=== PATIENT | male | born 1935 | race Caucasian/White ===

== ENCOUNTER → 2020-10-06 14:00 | Outpatient (BNVA) | payer MEDICARE, OTHER, SELFPAY | PROVIDERS: PCP Family Medicine; Referring Provider Family Medicine; Visit Provider Nurse Practitioner Family | DX: R10.11 Right upper quadrant pain (principal); Z12.5 Encounter for screening for malignant neoplasm of prostate; R32 Unspecified urinary incontinence; N40.1 Benign prostatic hyperplasia with lower urinary tract symptoms | CPT/HCPCS: 81003; G0103 ==

== ENCOUNTER → 2020-12-02 14:04 | Outpatient (BNVA) | payer MEDICARE, OTHER, SELFPAY | PROVIDERS: PCP Family Medicine; Visit Provider Urology | DX: N40.1 Benign prostatic hyperplasia with lower urinary tract symptoms (principal); N48.1 Balanitis | CPT/HCPCS: 81003 ==

== ENCOUNTER → 2021-01-13 13:36 | Outpatient (BNVA) | payer MEDICARE, OTHER, SELFPAY | PROVIDERS: PCP Family Medicine; Visit Provider Urology | DX: N40.1 Benign prostatic hyperplasia with lower urinary tract symptoms (principal) | CPT/HCPCS: 81003 ==

== ENCOUNTER → 2021-01-29 09:50 | Outpatient (BNVA) | payer MEDICARE, OTHER, SELFPAY | PROVIDERS: PCP Family Medicine; Referring Provider Family Medicine; Visit Provider Specialist | DX: G20 Parkinson's disease (principal); Z87.891 Personal history of nicotine dependence | CPT/HCPCS: 99204 ==

== ENCOUNTER → 2021-04-20 12:36 | Outpatient (BNVA) | payer MEDICARE, OTHER, SELFPAY | PROVIDERS: PCP Family Medicine; Visit Provider Specialist | DX: G20 Parkinson's disease (principal); Z87.891 Personal history of nicotine dependence | CPT/HCPCS: 99213; 99214 ==

== ENCOUNTER → 2021-05-27 12:52 | Outpatient (BNVA) | payer MEDICARE, OTHER, SELFPAY | PROVIDERS: PCP Family Medicine; Visit Provider Specialist | DX: G20 Parkinson's disease (principal); R39.15 Urgency of urination; R35.0 Frequency of micturition; Z87.891 Personal history of nicotine dependence | CPT/HCPCS: 99214 ==

== ENCOUNTER → 2021-07-21 13:00 | Outpatient (BNVA) | payer MEDICARE, OTHER, SELFPAY | PROVIDERS: PCP Family Medicine; Visit Provider Urology | DX: N40.1 Benign prostatic hyperplasia with lower urinary tract symptoms (principal); N30.80 Other cystitis without hematuria; N48.1 Balanitis; G20 Parkinson's disease | CPT/HCPCS: 81003; 87077; 87086; 87184 ==

== ENCOUNTER → 2021-08-10 15:28 | Outpatient (BNVA) | payer MEDICARE, OTHER, SELFPAY | PROVIDERS: PCP Family Medicine; Visit Provider Urology | DX: N30.00 Acute cystitis without hematuria (principal); N40.1 Benign prostatic hyperplasia with lower urinary tract symptoms; G20 Parkinson's disease; N48.1 Balanitis | CPT/HCPCS: 81003 ==

== ENCOUNTER → 2021-12-21 12:43 | Outpatient (BNVA) | payer MEDICARE, OTHER, SELFPAY | PROVIDERS: PCP Family Medicine; Visit Provider Specialist | DX: G20 Parkinson's disease (principal); F02.80 Dementia in other diseases classified elsewhere, unspecified severity, without behavioral disturbance, psychotic disturbance, mood disturbance, and anxiety; M54.9 Dorsalgia, unspecified | CPT/HCPCS: 96116; 99214 ==

== ENCOUNTER 2022-01-26 06:00 | Outpatient (RCR) | payer MEDICARE, OTHER, SELFPAY | END 2022-01-28 23:59 | disposition home or self-care (01) | LOC: MPT 06:00 | PROVIDERS: PCP Family Medicine; Referring Provider Specialist; Visit Provider Specialist | DX: G20 Parkinson's disease (principal) | CPT/HCPCS: 97110; 97162 ==

== ENCOUNTER 2022-01-29 06:00 | Outpatient (RCR) | payer MEDICARE, OTHER, SELFPAY | END 2022-02-28 23:59 | disposition home or self-care (01) | LOC: MPT 06:00 | PROVIDERS: PCP Family Medicine; Referring Provider Specialist; Visit Provider Specialist | DX: G20 Parkinson's disease (principal); M54.59 Other low back pain | CPT/HCPCS: 97110; 97112; 97116 ==

== ENCOUNTER → 2022-02-09 10:11 | Outpatient (BNVA) | payer MEDICARE, OTHER, SELFPAY | PROVIDERS: PCP Family Medicine; Visit Provider Urology | DX: N40.1 Benign prostatic hyperplasia with lower urinary tract symptoms (principal); N48.1 Balanitis; G20 Parkinson's disease | CPT/HCPCS: 51741; 51798; G0463; 81003; 99213 ==

== ENCOUNTER 2022-03-01 06:00 | Outpatient (RCR) | payer MEDICARE, OTHER, SELFPAY | END 2022-03-31 23:59 | disposition home or self-care (01) | LOC: MPT 06:00 | PROVIDERS: PCP Family Medicine; Referring Provider Specialist; Visit Provider Specialist | DX: G20 Parkinson's disease (principal) | CPT/HCPCS: 97110; 97116 ==

== ENCOUNTER 2022-03-04 13:45 | Outpatient (CLI) | payer MEDICARE, OTHER, SELFPAY ==
--- NOTE | 2022-03-04 13:45 | MR_ITS ---
WS: [id number] MRI SACRUM without CONTRAST. COMPARISON: None Multiplanar, multisequence imaging is performed without contrast. History: Chronic RIGHT hip and low back pain. No significant narrowing of the SI joints. There is no fluid in the SI joints or erosions. No widenin g or narrowing. No fusion. The sacral nerve roots are exiting through the foramina and surrounded by fat. No soft tissue masses or displacement of the nerve roots. Posterior alignment of the sacrum is n ormal. Sacral segments are normal. MR/MR sacrum wo con* [id number] IMPRESSION: Unremarkable MRI sacrum. No SI joint or neural foraminal abnormalities.
--- NOTE | 2022-03-04 15:15 | MR_ITS ---
WS: [id number] MRI LUMBAR SPINE NONCONTRAST HISTORY: M54.9 - Dorsalgia, unspecified COMPARISON: None available. TECHNIQUE: Sagittal and axial multisequence imaging is submitted. 3 mm retrolisthesis of L2. 2 mm retrolisthesis of L3 and L4. No acute marrow edema or fracture. Mild disc desiccation and narrowing. Most significant narrowing at L4-5 and L5-S1. Vertebral endplate osteophytes at all levels. Conus terminates normally at L1-2 disc level. L1-L2: Normal. L2-L3: Mild disc bulging and facet arthritis. L3-L4: Mild annular disc bulge with mild bilateral facet joint arthritis. No stenosis. L4-L5: Mild annular disc bulge. Annular fissure centrally. Disc encroaches upon the subarticular rece sses and the traversing L5 nerve roots. Mild ligamentum flavum hypertrophy. Mild bilateral foraminal narrowing and subarticular recess stenosis. L5-S1: Mild diffuse annular disc bulge. Mild bilateral foraminal stenosis. Annular disc bulging is co ntacting the inferior surface of the exiting L5 nerve roots bilaterally. Small amount of fluid in the RIGHT facet joint. 8mm cyst in the LEFT kidney. MR/MR lumbar spine wo con* [id number] IMPRESSION: 1. No significant central or foraminal stenosis. 2. Mild annular disc bulging narrowing the subarticular recesses at L4-5 with contact on the traversing L5 nerve roots. 3. Mild annular disc bulge at L5-S1 with disc contact in the inferior surfaces of the exiting L5 nerve roots bilaterally.
== END 2022-03-04 13:46 | disposition home or self-care (01) ==
LOC: RAD 13:48
PROVIDERS: PCP Family Medicine; Visit Provider Specialist
DX: M51.27 Other intervertebral disc displacement, lumbosacral region (principal); M51.26 Other intervertebral disc displacement, lumbar region
CPT/HCPCS: 72148

== ENCOUNTER → 2022-03-10 13:03 | Outpatient (BNVA) | payer MEDICARE, OTHER, SELFPAY | PROVIDERS: PCP Family Medicine; Visit Provider Specialist | DX: G20 Parkinson's disease (principal); M54.17 Radiculopathy, lumbosacral region; M48.061 Spinal stenosis, lumbar region without neurogenic claudication; F02.80 Dementia in other diseases classified elsewhere, unspecified severity, without behavioral disturbance, psychotic disturbance, mood disturbance, and anxiety | CPT/HCPCS: 99214 ==

== ENCOUNTER → 2022-08-12 10:15 | Outpatient (BNVA) | payer MEDICARE, OTHER, SELFPAY | PROVIDERS: PCP Family Medicine; Visit Provider Urology | DX: N40.1 Benign prostatic hyperplasia with lower urinary tract symptoms (principal); N48.1 Balanitis; G20 Parkinson's disease | CPT/HCPCS: 51741; 51798; 81003; 99213 ==

== ENCOUNTER → 2022-10-06 13:50 | Outpatient (BNVA) | payer MEDICARE, OTHER, SELFPAY | PROVIDERS: PCP Family Medicine; Visit Provider Specialist | DX: G20 Parkinson's disease (principal); F06.70 Mild neurocognitive disorder due to known physiological condition without behavioral disturbance; E11.9 Type 2 diabetes mellitus without complications; Z79.4 Long term (current) use of insulin | CPT/HCPCS: 99213 ==

== ENCOUNTER → 2023-10-04 13:42 | Outpatient (BNVA) | payer MEDICARE, OTHER, SELFPAY | PROVIDERS: PCP Family Medicine; Referring Provider Specialist; Visit Provider Specialist | DX: R29.90 Unspecified symptoms and signs involving the nervous system (principal); G20.A1 Parkinson's disease without dyskinesia, without mention of fluctuations | CPT/HCPCS: 99214 ==

== ENCOUNTER → 2024-10-05 09:46 | Outpatient (BNVA) | payer MEDICARE, OTHER, SELFPAY | PROVIDERS: PCP Family Medicine; Visit Provider Specialist | DX: R29.90 Unspecified symptoms and signs involving the nervous system (principal); G20.A1 Parkinson's disease without dyskinesia, without mention of fluctuations | CPT/HCPCS: 99213 ==